=== PATIENT | male | born 1990 | race African-American/Black ===

== ENCOUNTER 2024-09-15 22:35 | Emergency (ER) | payer MEDICAID ==
[~2024-09-15] VITALS: Ht 177.8 cm; Wt 105.0 kg
[2024-09-15 22:47] VITALS: BP 142/80; PULSE 98; RESP 16; TEMP 36.9; O2SAT 99
[2024-09-16] MEDS: HYDROCODONE/ACETAMINOPHEN 5/325MG TABLET PO ONE (00:15)
== END 2024-09-16 02:43 | disposition left against medical advice (07) ==
LOC: ER 22:35
DX: R51.9 Headache, unspecified (principal); V49.9XXA Car occupant (driver) (passenger) injured in unspecified traffic accident, initial encounter; Y93.89 Activity, other specified; Y92.89 Other specified places as the place of occurrence of the external cause; Y99.8 Other external cause status
CPT/HCPCS: 99284